=== PATIENT | male | born 1930 | race Caucasian/White ===

== ENCOUNTER 2017-02-01 05:55 | Outpatient (CLI) | payer MEDICARE, BC ==
[~2017-02-01] VITALS: Ht 162.6 cm; Wt 60.0 kg
--- NOTE | ~2017-02-01 | CATH ---
Cardiac Diagnostic Report Demographics Patient Name MILI Syed Gender Male Date of 1930 Age 86 year(s) Patient Number [id number] Date of Study 02/01/2017 Visit Number [id number] Room Number G6399 [place] [id number] Ht 162.56 cm Wt 60 kg Referring Giancarlo Horta MD Primary Physician Physician Performing Efstratiou Secondary Physician Physician Memo Hathaway MD Diagnostic Efstratiou Assisting Physician Physician Memo Hathaway MD Interventional Physician Dining Services Director Physician Findings and Conclusions Diagnostic Findings and Conclusion Severe aortic stenosis. DOUG 0.6-0.7 cm2. No significant CAD. Diagnostic Recommendations Refer for TAVR. Procedure Description The patient was brought to the diagnostic cardiac catheterization-EP laboratory in the fasting, non-sedated state. Informed consent was obtained in the written and verbal form after the risks and benefits were explained. The patient had no further questions and agreed to proceed. The planned puncture-incision site(s) were shaved and prepped with ChloraPrep and draped in the usual sterile manner. Surface ECG rhythm, blood pressure measurement, and pulse oximetry were monitored throughout the procedure. Arterial access. The access site was infiltrated with lidocaine. The vessel was entered with the Seldinger technique. A sheath was advanced into the vessel and used for catheter placement. Venous access. The access site was infiltrated with 2% lidocaine. The vessel was entered with the Seldinger technique. A sheath was advanced into the vessel and used for catheter placement. Selective left coronary angiography. A catheter was advanced into the left coronary vessel ostium under Fluoroscopic guidance. Contrast was injected by hand. Images were obtained in multiple projections. Selective right coronary angiography. A catheter was advanced into the right coronary vessel ostium under fluoroscopic guidance. Contrast was injected by hand. Images were obtained in multiple projections. Left heart catheterization. A catheter was advanced across the aortic valve to the left ventricle under fluoroscopic guidance. Resting hemodynamics were obtained. Right heart catheterization. A Stoneham Fatuma catheter was successfully advanced to the right atrium, right ventricle, pulmonary artery, and pulmonary artery wedge position under fluoroscopic guidance. Resting hemodynamics were obtained. Measurements included pressures, arterial and venous oxygen saturation samples, and cardiac output. The [place] was removed without difficulty. Arterial and Venous hemostasis was achieved. The patient was transferred to a regular nursing floor via cart accompanied by a nurse. The patient left the laboratory in stable condition. Diagnostic Cath Status: Elective Procedure Procedure Type Diagnostic procedure:Angiography:, Right and Left Heart Cath, Coronary Angios Indications: Aortic stenosis and Increased fatigue. The procedure was explained in detail to the patient. Risks, complications and alternative treatments were reviewed. Written consent was obtained. Medications Reviewed with Patient prior to Procedure. Angiographic Findings Dominance: Right Cardiac Arteries and Lesion Findings LMCA: Normal (0% Stenosis). LAD: Multiple stenosis. Lesion on Prox LAD: Proximal subsection.20% stenosis . Lesion on 1st Diag: Proximal subsection.20% stenosis . LCx: Single stenosis. Lesion on 1st Ob Kim: Ostial.30% stenosis . RCA: Single stenosis. Lesion on 1st RPL: Proximal subsection.20% stenosis . Coronary Tree Procedure Data Procedure Date Date: 02/01/2017Start: 09:34 AMEnd: 10:39 AM Entry Locations - Retrograde Percutaneous access was performed through the Right Radial artery (Primary location). A 6 Fr sheath was inserted. Hemostasis was successfully obtained using Mechanical Compression. Closure Comments: 12 ml of air in R. Band by Jeff Zhu . - Antegrade Percutaneous access was performed through the Right Brachial vein. A 7 Fr sheath was inserted. Hemostasis was successfully obtained using Manual Compression. Entry Comments: 6 Fr exchanged for 7 Fr. Closure Comments: Pressure held by Bri Son RN.. Procedure Medications Order and Administration + + +-------+-------+ !Time !Medication !Dosage !Route ! + + +-------+-------+ !02/01/2017 !PAE Radial Cocktail: Heparin 5000 units, ! !I.A. ! !09:38 AM !Nitroglycerin 200mcg, Verapamil 3 mg ! ! ! ! !(ACC_3) ! ! ! + + +-------+-------+ Devices Used - A6 Fr. Dual Lumen Pigtailwas used for:LV Pressures. - A6 Fr. BS AL1 Diag. Catheterwas used for:LV Pressures. - A6 Fr. BS JR 4 Diag. Catheterwas used for:Right coronary angiography. - A6 Fr. BS JL 3.5 Diag. Catheterwas used for:Left coronary angiography. Contrast Material - Isovue 21438 ml Fluoroscopy Time: Diagnostic: 16:12 minutes. Total: 16:12 minutes. Fluoroscopy Dose: Diagnostic: 623 mGy. Total: 623 mGy. Estimated Blood Loss: 10 ml. Medical History Allergies - Other:Reaction - Stomach->vomitingSensitivity: Adverse Reaction (Fentanyl). Risk Factors The patient risk factors include:hypercholesterolemia, insulin-treated diabetes mellitus and chronic lung disease. Admission Data Admission Date: 02/01/2017 Admission Time: 05:55 AM Admit Source: Other Insurance Payors: Medicare. Admission Medications + +------+------+ + + + + !Medication !Dosage!Times !Last !Last !Administered !Comments ! ! ! !Per !Delivery !Delivery ! ! ! ! ! !Day !Date !Time ! ! ! + +------+------+ + + + + !Non-Statin ! ! ! ! ! ! ! !(any) ! ! ! ! ! ! ! + +------+------+ + + + + !Statin ! ! ! ! ! ! ! !(any) ! ! ! ! ! ! ! + +------+------+ + + + + !Beta ! ! ! ! ! ! ! !Radha ! ! ! ! ! ! ! !(any) ! ! ! ! ! ! ! + +------+------+ + + + + !Warfarin ! ! ! ! ! ! ! + +------+------+ + + + + Snapshots Hemodynamics Condition: Rest O2 Consumption: Estimated: 194.09Heart Rate: 83 bpm Oxygen Saturation +--------+-----+----+ +---+ + !Location!pCO2 !pO2 !% Saturation !Hgb!O2 Content ! +--------+-----+----+ +---+ + !RA ! ! !60.5 !13 ! ! +--------+-----+----+ +---+ + !PA ! ! !60.4 !13 ! ! +--------+-----+----+ +---+ + !AO ! ! !91.1 !13 ! ! +--------+-----+----+ +---+ + Pressures (mmHg) +-----+ + !Site !Pressure ! +-----+ + !RA !9/5 (4) ! +-----+ + !RV !50/2 ,13 ! +-----+ + !PCW ! () ! +-----+ + !PCW ! () ! +-----+ + !PA ! (27) ! +-----+ + !AO !121/63 (88) ! +-----+ + !AO !116/60 (84) ! +-----+ + !LV !158/2 ,20 ! +-----+ + !AO !120/62 (89) ! +-----+ + !LV !155/5 ,21 ! +-----+ + !AO !122/64 (88) ! +-----+ + !LV !152/4 ,22 ! +-----+ + !AO !118/62 (86) ! +-----+ + !LV !149/4 ,21 ! +-----+ + !LV !153/6 ,20 ! +-----+ + !AO !116/58 (84) ! +-----+ + !LV !153/7 ,21 ! +-----+ + !AO !128/41 (82) ! +-----+ + !AO !128/64 (91) ! +-----+ + Cardiac Output + + +-----+ !Time !Cardiac Output (l/min) !Use ! + + +-----+ !02/01/2017 10:11 AM !3.23 !True ! + + +-----+ !02/01/2017 10:12 AM !3.31 !True ! + + +-----+ !02/01/2017 10:12 AM !3.87 !True ! + + +-----+ Cardiac Output +-------+ + + + !Method !CO (l/min) !CI (l/min/m2) !SV (ml) ! +-------+ + + + !Edward !3.58 !2.2 !43.06 ! +-------+ + + + !Thermal!3.47 !2.1 !46.27 ! +-------+ + + + Valve Gradients and Areas + +--------+--------+--------+---------+ + + !Valve !Peak !Mean !Area !Index !Flow !Source ! + +--------+--------+--------+---------+ + + !Aortic !37 !31 !0.65 !0.4 !161.33 !Edward ! + +--------+--------+--------+---------+ + + !Aortic !37 !31 !0.63 !0.38 !156.38 !Thermal ! + +--------+--------+--------+---------+ + + Shunts Oxygen Values O2 Capacity 176.8 O2 Consumption 194.09 Flows (l/min) Qs 3.59 Qe/Qp 1 Qp 3.58 Qp/Qs 1 Qe 3.59 Vascular Resistance (dynes x sec x cm-5) + +-----+-----+----+----+---------+-------+ !CO method !TSVR !SVR !TPVR!PVR !TPVR/TSVR!PVR/SVR! + +-----+-----+----+----+---------+-------+ !Edward !25.28!24.06!7.55!2.15!0.3 !0.09 ! + +-----+-----+----+----+---------+-------+ !Thermal !26.08!24.82!7.79!2.22!0.3 !0.09 ! + +-----+-----+----+----+---------+-------+ !Qp or Qs !25.21!23.99!7.55!2.15!0.3 !0.09 ! + +-----+-----+----+----+---------+-------+ Discharge Data Discharge Date: 02/01/2017 Hospital Status: Outpatient Signatures dtt: Elinor Kahn dtd: 02/01/17 0934 Physician Self Edit
[~2017-02-01 05:55] MED LIST: ALDACTONE25 MG PO; AMBIEN5 MG PO; BYSTOLIC5 MG PO; COQ-1030 MG PO; COUMADIN 4MG **4 MG PO; CPAP INH; DELTASONE5 MG PO; FOSAMAX70 MG PO; GLUCOPHAGE1000 MG PO; HYDRODIURIL25 MG PO; KLOR-CON 1010 MEQ PO; LEVEMIR FL100 UNIT/1 SUB-Q; LEVOTHROID (SY50 MCG PO; LOVASTATIN40 MG PO; MULTI VITAMIN1 EACH PO; OMEPRAZOLE40 MG PO; REMERON15 MG PO; VITAMIN D-32000 UNI1 PO; ZETIA10 MG PO; ZYLOPRIM300 MG PO
[2017-02-01 07:24] LABS: INR - (THERAPEUTIC) 1.01 (0.92-1.07); PROTIME 10.6 SECONDS (9.8-11.4)
== END 2017-02-01 15:12 | disposition disaster alternative care site (69) ==
LOC: GPOC 05:55 → GPCU 05:55 → GPOC 06:00
PROVIDERS: Internal Medicine Cardiovascular Disease
DX: Z01.818 Encounter for other preprocedural examination (principal); R93.1 Abnormal findings on diagnostic imaging of heart and coronary circulation; I35.0 Nonrheumatic aortic (valve) stenosis; I10 Essential (primary) hypertension; G47.30 Sleep apnea, unspecified; E11.9 Type 2 diabetes mellitus without complications; Z79.84 Long term (current) use of oral hypoglycemic drugs; F32.9 Major depressive disorder, single episode, unspecified; Z86.711 Personal history of pulmonary embolism; Z79.01 Long term (current) use of anticoagulants
CPT/HCPCS: C1769; C1887; C1894; J1644; J2001; J2250; J7030; J7060